=== PATIENT | female | born 1940 | race Caucasian/White ===

== ENCOUNTER 2016-11-07 01:57 | Inpatient (IN) | payer OTHER ==
[~2016-11-07] VITALS: Ht 165.1 cm; Wt 54.4 kg
[~2016-11-07 01:57] MED LIST: BENICAR20 M1 PO; FLOVENT HFA10.6 GM INH; GABAPENTIN100 M2 PO; PROAIR HFA8.5 GM INH; TRAMADOL HCL50 M1 PO; VITAMIN B122500 MC1
--- NOTE | 2016-11-07 08:49 | Admission Core Measures ---
Admission Meds I reviewed the following Meds: Current Medications Sig/Justyna Start time Last Medication Dose Stop Time Status Admin Acetaminophen 975 MG ONCE 11/07 0000 NR (Tylenol) 11/07 2358 Cefazolin Sodium 2,000 MG ONCE 11/07 NR (Kefzol-Ancef Inj) 11/07 2358 Oxycodone HCl 10 MG ONCE 11/07 0000 NR (Roxicodone) 11/07 2358 Acute Coronary Syndrome Inclusion Criteria ACS Diagnosis No Inpatient Core Measures LDL Reminder: If No, please order W/I first 24hr of stay Congestive Heart Failure Inclusion Criteria CHF Diagnosis No Cerebrovascular accident Inclusion Criteria CVA/TIA Diagnosis No Inpatient Core Measures Bedside Swallow Eval Reminder: If BSE failed, place ST order Antithrombotic Reminder: Order Antithrombotic Medication by end of day 2 Antithrombotic Reminder: Document Reason Antithrombotic Not ordered by end of day 2 AFIB/Flutter Reminder: If Present, add to problem list AFIB/Flutter Reminder: Order Anticoag Medication for pts with AFIB/Flutter Atherosclerosis Reminder: If Present, add to problem list LDL Reminder: If No, please order W/I first 24hr of stay PT Order Reminder: If No, please order Venous thromboembolism Inpatient Core Measures VTE Risk Factors: [facility] prophylaxis d/t No contraindications No VTE Pharm Prophylaxis d/t No contraindications Inclusion Criteria - Per Current guidelines, there needs to be overlap - treatment for the first 5 days of Warfarin therapy. - Parenteral Anticoagulation (IV or SC) needs to be - given along with Warfarin therapy. VTE Diagnosis No VTE Type NONE VTE Confirmed by (Test) NONE Problem List As ranked by this Provider includes Assessment & Plan 1. Primary osteoarthritis of left hip HOME MEDS Home Med List Albuterol Sulfate (Proair Hfa) 90 MCG HFA.AER.AD 2 PUF INH AD PRN ASTHMA ( Reported) Fluticasone Propionate (Flovent Hfa) 44 MCG AER.W.ADAP 2 PUF INH TID ASTHMA ( Reported) Gabapentin 100 MG CAPSULE 1 CAP PO 4XDAILY NERVE PAIN (Reported) Olmesartan Medoxomil (Benicar) 20 MG TABLET 1 TAB PO DAILY BP (Reported) Tramadol HCl 50 MG TABLET 1 TAB PO Q6H PRN PAIN (Reported)
--- NOTE | 2016-11-07 12:06 | Surg Short-stay <48hrs Dis Sum ---
Visit Information Visit Dates Admission Date: 11/07/16 Surgical Short Stay DC Summary Admission Diagnosis: Primary unilateral osteoarthritis, left hip Final Diagnosis: same, s/p Total hip replacement, left Procedure(s): Total hip replacement, left Summary/Significant Findings: Patient was admitted to the hospital for an elective total joint replacement. The procedure was tolerated well and patient was transferred to a general surgical floor. Diet was advanced and tolerated, and the patient voided spontaneously. The patient was evaluated and treated by physical therapy. At the time of hospital discharge, the vital signs were stable, neurovascular status was intact, and pain was controlled with the use of oral pain medications Condition at Discharge: stable Discharge Disposition: home health services Discharge instructions provided to patient/family: Yes Post discharge follow-up plan: Follow up with Dr. Sebastian in 6 weeks from date of surgery. Please call his office to arrange and/or confirm this appointment.
--- NOTE | 2016-11-07 12:09 | Patient Discharge Instructions ---
Discharge Instructions General Discharge Information You were seen/treated for: left hip pain You had these procedures: Total hip replacement, LEFT Watch for these problems: Increasing pain despite the use of pain medication Increasing redness, warmth or swelling Drainage of any type from incision Inability to bear weight on operative leg Persistent nausea and vomiting Fever greater than 101.5 degrees Other wound care: Please keep wound clean and dry. No ointments or lotions of any type on or near incision at any time. No exceptions. Your dressing will be changed by your nurse on the second day after your surgery. Daily dry dressing changes are recommended each day thereafter. Do not soak your wound in a bath at any time until otherwise indicated by Dr. Sebastian. You may shower, please dry wound immediately after shower with a clean towel. Special Instructions: Aspirin: You are taking this medication to help prevent blood clot formation. Please take with food to protect your stomach lining. Please take as directed. Protonix: Take this daily to protect your stomach lining while taking aspirin. Constipation: Pain medication can cause constipation. Dr. Sebastian has recommended that you take Colace and miralax each day. You may discontinue this medication if you develop loose stool or diarrhea. If you wish to continue this medication, it is available over the counter. If you are unable to move your bowels after several days, if you are unable to pass gas and are developing bloating, nausea, or vomiting as a result, please contact your doctor. Diet Continue normal diet: Yes Activity Activity Limited to: Weight bear as tolerated Additional ACTIVITY Info: use assistive devices as needed Acute Coronary Syndrome Inclusion Criteria At DC or during hospital stay patient has or had the following: ACS DIAGNOSIS No Discharge Core Measures Meds if any: Prescribed or Continued at Discharge Meds if any: NOT Prescribed or Continued at Discharge Congestive Heart Failure Inclusion Criteria At DC or during hospital stay patient has or had the following: CHF DIAGNOSIS No Discharge Core Measures Meds if any: Prescribed or Continued at Discharge Meds if any: NOT Prescribed or Continued at Discharge Cerebrovascular accident Inclusion Criteria At DC or during hospital stay patient has or had the following: CVA/TIA Diagnosis No Discharge Core Measures Meds if any: Prescribed or Continued at Discharge Meds if any: NOT Prescribed or Continued at Discharge Venous thromboembolism Inclusion Criteria VTE Diagnosis No VTE Type NONE VTE Confirmed by (Test) NONE Discharge Core Measures - Per Current guidelines, there needs to be overlap - treatment for the first 5 days of Warfarin therapy. - If discharged on Warfarin prior to 5 days of - overlap therapy, the patient will need to be - assessed for post discharge needs including - *Post discharge parental anticoagulation - *Warfarin and/or parental anticoagulation education - *Follow up date to check INR post discharge At least 5 days overlap therapy as Inpatient No Meds if any: Prescribed or Continued at Discharge Note: Overlap Therapy is Warfarin and Anticoagulant Meds if any: NOT Prescribed or Continued at Discharge
[2016-11-07] MEDS ORDERED: ASPIRIN EC325 M2 PO (13:41)
[2016-11-07] MEDS ORDERED: MIRALAX17 G1 PO (13:41)
[2016-11-07] MEDS ORDERED: PROTONIX20 M1 PO (13:41)
[2016-11-07] MEDS ORDERED: DILAUDID2 M1 PO (13:41)
[2016-11-07] MEDS ORDERED: COLACE100 M1 PO (13:41)
[2016-11-07 16:30] VITALS: BP 110/70
--- NOTE | 2016-11-07 17:37 | RADIOLOGY REPORT ---
EXAMINATION: XR HIP, LEFT CLINICAL INFORMATION: Status post left total hip arthroplasty. COMPARISON: CT scan of abdomen and pelvis 10/16/2016. TECHNIQUE: Two views of the left hip. FINDINGS: There are recent postoperative changes of a left total hip arthroplasty. The metallic components of the joint replacement are intact and there is no dislocation. No evidence of periprosthetic fracture. Soft tissue gas and swelling is consistent with recent surgery. IMPRESSION: There are expected postoperative changes of a left total hip arthroplasty. Otherwise no acute finding.
--- NOTE | 2016-11-07 17:42 | Operative Report ---
Operative/Inv Procedure Report Surgery Date: 11/07/16 Name of Procedure: Left total hip replacement Pre-Operative Diagnosis: Primary left hip DJD Post-Operative Diagnosis: Same Estimated Blood Loss: 250 Surgeon/Turntable Man: AIMEE WOODARD,AGUILA Sheth Anesthesia: block Operative/Procedure Note Note: Description of Procedure: The patient was taken to the operating room and positively identified. After induction of spinal anesthesia and administration of appropriate pre-operative antibiotics, the patient was positioned supine on the operating room table and all bony prominences were well padded. After performing a surgical timeout, the left lower extremity was prepped and draped in the usual sterile fashion. A direct anterior approach was made to the left hip. The incision was carried sharply through superficial soft tissues to the level of the fascia. Meticulous hemostasis was maintained with Bovie electocautery. The fascia over the tensor fascia aaron muscle was opened sharply and the interval between the TFL and the sartorius was entered bluntly taking care to stay lateral to the lateral femoral cutaneous nerve. Retractors were placed around the femoral neck and the pericapsular fat was identified. The ascending branches of the lateral femoral circumflex vessels were identified and carefully coagulated. The pericapsular fat and anterior capsule were then resected. A napkin ring osteotomy was performed and the femoral head was removed without difficulty. Attention was then turned to the acetabulum. After appropriate placement of retractors, the acetabulum was exposed. Soft tissue was cleaned from the acetabular margin and notch. Overhanging osteophytes were removed and the teardrop was exposed. The acetabulum was then sequentially reamed to accept a 54 mm [place] Tritanium hemispherical solid back shell. This was impacted into place in the appropriate position and fitted with a 36 mm Trident X3 zero degree polyethylene insert. Attention was then turned to the femur. After performing the appropriate ligament releases, the proximal femur was exposed. It was then sequentially broached to accept a size #4 [place] Accolade 2 stem. This was trialed for leg length and stability. The trial component was removed and the final component was impacted into place. The trunnion was carefully cleaned and fit with a 36 mm, +2.5 Biolox delta ceramic femoral head. The hip was reduced and put through a full range of motion and found to be stable. The articular space was then irrigated with sterile saline. The periarticular soft tissues were infilitrated with Marcaine. The fascial layer was closed with interrupted #1 vicryl suture and the skin was re-approximated with interrupted 2 -0 vicryl. The skin was closed with a running 3-0 V-Lock suture. Steri-strips and a sterile dressing were applied. The patient was awakened and taken to the recovery room in satisfactory condition.
--- NOTE | 2016-11-07 18:23 | NUR ---
pt arrived TO FLOOR VIA STRETCHER, AO, 2LNC, VSS, NO C/O PAIN, HAS NOT YET AMBULATED, ORIENTED TO ROOM AND CALL LIGHT, IV IN PLACE WITH FLUIDS RUNNING, ALPS APPLIED, DINNER ORDERED, ADMISSION COMPLETE, +CMS, +PEDAL PULSES, CALL [place] WITHIN REACH.
--- NOTE | 2016-11-07 20:05 | NUR ---
PT HAS NOT YET STOOD OR AMBULATED WITH PT- ORTHOSTATICS UNABLE TO BE COMPLETED AT THIS TIME.
[2016-11-07 20:40] VITALS: BP 148/60
[2016-11-07 23:29] VITALS: BP 134/60
[2016-11-08 01:55] VITALS: BP 116/68
[2016-11-08 06:50] VITALS: BP 120/60
--- NOTE | 2016-11-08 08:10 | PN- Orthopedic ---
Subjective Subjective: Awake, alert Has not seen PT yet Tolerating diet Wants to go home today Objective Vital Signs and I&Os Vital Signs Date Time Temp Pulse Resp B/P B/P Pulse O2 O2 Flow FiO2 Mean Ox Delivery Rate 11/08 0650 97.4 64 20 120/60 93 Room Air 11/08 0155 98.0 75 20 116/68 95 Nasal Cannula 11/08 0000 Nasal 2.0L Cannula 11/07 2329 98.5 78 20 134/60 95 Nasal 2.0L Cannula 11/07 2040 98.5 84 20 148/60 94 Nasal 2.0L Cannula 11/07 1949 Nasal 2.0L Cannula 11/07 1630 97.6 81 20 110/70 94 Nasal 2.0L Cannula Intake & Output 11/08 1600 11/08 0800 11/08 0000 11/07 1600 11/07 0800 11/07 0000 Intake Total 350 500 Output Total 250 250 Balance 100 250 Intake, IV 150 300 Intake, Oral 200 200 Output, Urine 250 250 Patient 120 lb Weight Weight Reported by Patient Measurement Method Physical Exam: afebrile, vss Chest: clear anteriorly bilaterally, RRR Abd: soft, good bs Ext: warm, no edema, positive sensate, no calf tenderness Wound: dressed, dry, ice pack in place Assessment/Plan Assessment/Plan 76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 No Antibiotics Is Patient on Antibiotics? No
[2016-11-08 09:47] VITALS: BP 120/80
[2016-11-08 10:28] LABS: ABSOLUTE BASOPHIL COUNT 0 /CUMM (0.0-0.2); ABSOLUTE EOSINOPHIL COUNT 0.1 /CUMM (0.0-0.7); ABSOLUTE GRANULOCYTE CT 6.8 /CUMM (1.4-6.5); ABSOLUTE LYMPH COUNT 1.3 /CUMM (1.2-3.4); ABSOLUTE MONOCYTE COUNT 0.7 /CUMM (0.10-0.60); BASOPHIL % 0.2 % (0.0-2.0); EOSINOPHIL % 0.6 % (0-5); GRANULOCYTE % 76.2 % (42.2-75.2); HEMATOCRIT 34.4 % (37-47); MEAN CORPUSCULAR HGB 32.3 PG (27.0-31.0); MEAN CORPUSCULAR HGB CONC 34.4 G/DL (33.0-37.0); MEAN PLATELET VOLUME 7.2 FL (7.4-10.4); PLATELET COUNT 240 /CUMM (130-400); RBC DISTRIBUTION WIDTH 12.6 % (11.5-14.5); RED BLOOD CELL CT 3.66 /CUMM (4.20-5.40); WHITE BLOOD CELL COUNT 8.9 /CUMM (4.8-10.8)
[2016-11-08 13:44] VITALS: BP 106/74
== END 2016-11-08 15:08 | disposition home health service (06) | DRG 470 ==
LOC: SDA 01:57 → ENRESERV 16:58 → ENTRNSPT 17:37 → 2NA 18:15 → CMPTRNSPT 18:32 → ENPENDDIS 11-08 11:42 → 2NA 11-08 15:08
PROVIDERS: Physician Assistant Surgical; ADMIT Orthopaedic Surgery
PROC: 0SRB04A Replacement of Left Hip Joint with Ceramic on Polyethylene Synthetic Substitute, Uncemented, Open Approach (ICD-10-PCS; principal; 2016-11-07)
DX: M16.12 Unilateral primary osteoarthritis, left hip (principal); J44.9 Chronic obstructive pulmonary disease, unspecified; I10 Essential (primary) hypertension; G89.29 Other chronic pain
CPT/HCPCS: 2NASP; 36415; 73502-LT; 82436; 97116-GO; 97161-GP; 97530-GO; J0690; J0735; J2405; J2550; J3490; J7042